=== PATIENT | female | born 1940 | race Caucasian/White ===

== ENCOUNTER 2019-12-03 21:44 | Emergency (ER) | payer OTHER ==
[~2019-12-03] VITALS: Ht 157.5 cm; Wt 90.7 kg
[2019-12-03 21:56] VITALS: Ht 157.5 cm; Wt 90.7 kg
[2019-12-04 00:31] VITALS: BP 156/77
== END 2019-12-04 00:31 | disposition home or self-care (01) ==
LOC: ED 21:44
DX: M25.562 Pain in left knee (principal); M25.512 Pain in left shoulder; I10 Essential (primary) hypertension; W22.8XXA Striking against or struck by other objects, initial encounter; Y93.89 Activity, other specified; Y92.89 Other specified places as the place of occurrence of the external cause; Y99.8 Other external cause status
CPT/HCPCS: Q0092